=== PATIENT | male | born 1970 | race Asian ===

== ENCOUNTER 2019-03-26 08:29 | Emergency (ER) | payer OTHER ==
[~2019-03-26] VITALS: Ht 170.2 cm; Wt 114.8 kg
[2019-03-26 08:32] VITALS: BP 132/86; TEMP 97.5
== END 2019-03-26 09:12 | disposition home or self-care (01) ==
LOC: ED 08:29
DX: E11.65 Type 2 diabetes mellitus with hyperglycemia (principal); Z79.4 Long term (current) use of insulin
CPT/HCPCS: 99282